=== PATIENT | male | born 1965 | race Two or more races ===

== ENCOUNTER 2017-08-29 07:55 | Outpatient (CLI) | payer OTHER ==
[~2017-08-29 07:55] MED LIST: BACLOFEN10 MG; BACLOFEN20 MG PO; CELEXA40 MG PO; CIPRO750 MG PO; CLONAZEPAM1 MG PO; CYMBALTA20 MG; CYMBALTA60 MG; DEMEROL IM; DOCUSATE SODIU100 MG PO; LEXAPRO5 MG; METHYLPRED4 MG/DOSE- PO; NEURONTIN300 MG; NORFLEX100 MG PO; PERCOCET 5/3251 TAB PO; PREVACID30 MG PO; TOPAMAX25 MG; VISTARIL25 MG PO; [UNRECOGNIZED DRUG - OTHER]
== END 2017-08-29 08:09 | disposition home or self-care (01) ==
LOC: LAB 07:55
DX: N40.0 Benign prostatic hyperplasia without lower urinary tract symptoms (principal); N52.8 Other male erectile dysfunction

== ENCOUNTER → 2017-09-21 | Outpatient (CLI) | payer OTHER | END | disposition home or self-care (01) | LOC: LAB 08:09 | DX: N40.1 Benign prostatic hyperplasia with lower urinary tract symptoms (principal); E11.65 Type 2 diabetes mellitus with hyperglycemia; D64.89 Other specified anemias; E78.2 Mixed hyperlipidemia ==

== ENCOUNTER 2017-09-26 08:57 | Outpatient (CLI) | payer OTHER | END 2017-09-26 09:14 | disposition home or self-care (01) | LOC: LAB 08:57 | DX: N40.1 Benign prostatic hyperplasia with lower urinary tract symptoms (principal); E11.65 Type 2 diabetes mellitus with hyperglycemia; D64.89 Other specified anemias; E78.2 Mixed hyperlipidemia ==

== ENCOUNTER → 2017-12-31 07:59 | Outpatient (CLI) | payer OTHER | END | disposition home or self-care (01) | LOC: LAB 07:59 | DX: N39.0 Urinary tract infection, site not specified (principal); E11.21 Type 2 diabetes mellitus with diabetic nephropathy; D68.8 Other specified coagulation defects; E78.2 Mixed hyperlipidemia; E11.65 Type 2 diabetes mellitus with hyperglycemia ==

== ENCOUNTER → 2018-01-02 10:15 | Outpatient (CLI) | payer OTHER | END | disposition home or self-care (01) | LOC: LAB 10:15 | DX: N39.0 Urinary tract infection, site not specified (principal); E11.21 Type 2 diabetes mellitus with diabetic nephropathy; D68.8 Other specified coagulation defects; E78.2 Mixed hyperlipidemia; E11.65 Type 2 diabetes mellitus with hyperglycemia ==

== ENCOUNTER 2018-04-08 08:46 | Outpatient (CLI) | payer OTHER | END 2018-04-08 09:05 | disposition home or self-care (01) | LOC: LAB 08:46 | DX: N39.0 Urinary tract infection, site not specified (principal); E11.65 Type 2 diabetes mellitus with hyperglycemia; E03.8 Other specified hypothyroidism; E78.2 Mixed hyperlipidemia ==

== ENCOUNTER → 2018-12-16 | Outpatient (CLI) | payer OTHER | END | disposition home or self-care (01) | LOC: NUCLEAR 11-20 09:00 | DX: E21.0 Primary hyperparathyroidism (principal) | CPT/HCPCS: 78070; A9500 ==

== ENCOUNTER 2019-01-10 08:59 | Outpatient (CLI) | payer OTHER | END 2019-01-10 09:15 | disposition home or self-care (01) | LOC: LAB 08:59 | DX: M32.8 Other forms of systemic lupus erythematosus (principal) ==

== ENCOUNTER 2019-02-19 12:37 | Outpatient (CLI) | payer OTHER | END 2019-02-19 13:12 | disposition home or self-care (01) | LOC: RAD 12:37 | DX: M34.81 Systemic sclerosis with lung involvement (principal) ==

== ENCOUNTER 2019-03-04 08:41 | Outpatient (CLI) | payer OTHER | END 2019-03-04 15:00 | disposition home or self-care (01) | LOC: LAB 08:41 | DX: E11.65 Type 2 diabetes mellitus with hyperglycemia (principal); E78.2 Mixed hyperlipidemia; N39.0 Urinary tract infection, site not specified; E03.8 Other specified hypothyroidism; D64.89 Other specified anemias ==

== ENCOUNTER → 2019-09-01 09:39 | Outpatient (CLI) | payer OTHER | END | disposition home or self-care (01) | LOC: LAB 09:39 | PROVIDERS: ATTEND General Practice | DX: J11.1 Influenza due to unidentified influenza virus with other respiratory manifestations (principal); Z20.828 Contact with and (suspected) exposure to other viral communicable diseases; R51 Headache; Z11.59 Encounter for screening for other viral diseases ==

== ENCOUNTER 2019-10-15 12:37 | Emergency (ER) | payer OTHER ==
[~2019-10-15] VITALS: Ht 162.6 cm; Wt 70.3 kg
== END 2019-10-15 17:37 | disposition home or self-care (01) ==
LOC: ER 12:37
DX: B34.9 Viral infection, unspecified (principal); Z20.828 Contact with and (suspected) exposure to other viral communicable diseases

== ENCOUNTER 2019-10-21 14:14 | Outpatient (CLI) | payer OTHER | END 2019-10-21 14:16 | disposition home or self-care (01) | LOC: TOM 14:14 | PROVIDERS: ATTEND Psychiatry & Neurology Clinical Neurophysiology | DX: R51 Headache (principal) ==

== ENCOUNTER 2020-03-31 12:24 | Outpatient (CLI) | payer OTHER | END 2020-03-31 15:39 | disposition home or self-care (01) | LOC: RAD 12:24 | PROVIDERS: ATTEND Psychiatry & Neurology Clinical Neurophysiology | DX: M54.12 Radiculopathy, cervical region (principal) ==

== ENCOUNTER 2020-05-20 13:25 | Outpatient (CLI) | payer OTHER | END 2020-05-20 13:32 | disposition home or self-care (01) | LOC: RAD 13:25 | PROVIDERS: ATTEND Orthopaedic Surgery Orthopaedic Surgery of the Spine | DX: R07.89 Other chest pain (principal) ==

== ENCOUNTER 2020-06-17 10:55 | Outpatient (CLI) | payer OTHER | END 2020-06-17 11:04 | disposition home or self-care (01) | LOC: RAD 10:55 | PROVIDERS: ATTEND Orthopaedic Surgery Orthopaedic Surgery of the Spine | DX: R07.89 Other chest pain (principal) ==

== ENCOUNTER 2020-06-22 12:15 | Inpatient (IN) | payer OTHER ==
[~2020-06-22] VITALS: Ht 162.6 cm; Wt 68.9 kg
[2020-06-22] MEDS ORDERED: LIPITOR40 M1 PO (15:11)
[2020-06-22] MEDS ORDERED: GLIMEPIRIDE1 MG (15:11)
[2020-06-22] MEDS ORDERED: PLAVIX75 MG PO (15:12)
[2020-06-22] MEDS ORDERED: LIPOFEN150 MG PO (15:12)
[2020-06-22] MEDS ORDERED: JANUMET XR 50-1 EACH PO (15:12)
[2020-06-28] MEDS ORDERED: MEDROLPACK PO (07:46)
[2020-06-28] MEDS ORDERED: DIAZEPAM10 MG PO (07:46)
[2020-06-28] MEDS ORDERED: PERCOCET 5-3251 EACH PO (07:46)
[2020-06-28] MEDS ORDERED: COLACE100 MG PO (07:46)
== END 2020-06-29 12:21 | disposition home or self-care (01) | DRG 473 ==
LOC: O/R 06-28 04:54 → SURG 06-28 04:54 → SURH 09-28 12:15
PROVIDERS: ADMIT Orthopaedic Surgery Orthopaedic Surgery of the Spine; ATTEND Orthopaedic Surgery Orthopaedic Surgery of the Spine
PROC: XRG10F3 Fusion of Cervical Vertebral Joint using Radiolucent Porous Interbody Fusion Device, Open Approach, New Technology Group 3 (ICD-10-PCS; 2020-06-28)
PROC: 07DS3ZZ Extraction of Vertebral Bone Marrow, Percutaneous Approach (ICD-10-PCS; 2020-06-28)
PROC: 0RT30ZZ Resection of Cervical Vertebral Disc, Open Approach (ICD-10-PCS; principal; 2020-06-28 07:00)
DX: M50.01 Cervical disc disorder with myelopathy, high cervical region (principal); M48.02 Spinal stenosis, cervical region; I10 Essential (primary) hypertension; E11.9 Type 2 diabetes mellitus without complications

== ENCOUNTER 2020-07-13 13:16 | Outpatient (CLI) | payer OTHER ==
[~2020-07-13 13:16] MED LIST changes: +COLACE100 MG PO; +DIAZEPAM10 MG PO; +GLIMEPIRIDE1 MG; +JANUMET XR 50-1 EACH PO; +LIPITOR40 M1 PO; +LIPOFEN150 MG PO; +MEDROLPACK PO; +PERCOCET 5-3251 EACH PO; +PLAVIX75 MG PO
== END 2020-07-13 13:35 | disposition home or self-care (01) ==
LOC: RAD 13:16
PROVIDERS: ATTEND Orthopaedic Surgery Orthopaedic Surgery of the Spine
DX: Z98.1 Arthrodesis status (principal)

== ENCOUNTER → 2020-08-10 08:05 | Outpatient (CLI) | payer OTHER | END | disposition home or self-care (01) | LOC: LAB 08:05 | PROVIDERS: ATTEND Internal Medicine Hematology & Oncology | DX: D50.8 Other iron deficiency anemias (principal); R79.89 Other specified abnormal findings of blood chemistry; I10 Essential (primary) hypertension; R74.02 Elevation of levels of lactic acid dehydrogenase [LDH]; K76.89 Other specified diseases of liver; D51.1 Vitamin B12 deficiency anemia due to selective vitamin B12 malabsorption with proteinuria; D51.0 Vitamin B12 deficiency anemia due to intrinsic factor deficiency; E03.8 Other specified hypothyroidism; E06.3 Autoimmune thyroiditis; D47.3 Essential (hemorrhagic) thrombocythemia; M50.00 Cervical disc disorder with myelopathy, unspecified cervical region; M51.06 Intervertebral disc disorders with myelopathy, lumbar region; E78.2 Mixed hyperlipidemia; E11.69 Type 2 diabetes mellitus with other specified complication; E11.21 Type 2 diabetes mellitus with diabetic nephropathy ==

== ENCOUNTER 2020-08-10 12:53 | Outpatient (CLI) | payer OTHER | END 2020-08-10 13:02 | disposition home or self-care (01) | LOC: SONOGRAMA 12:53 → MAMO-SONO 13:15 | PROVIDERS: ATTEND Internal Medicine Hematology & Oncology | DX: E04.2 Nontoxic multinodular goiter (principal); R59.0 Localized enlarged lymph nodes; D47.3 Essential (hemorrhagic) thrombocythemia; I10 Essential (primary) hypertension; E11.9 Type 2 diabetes mellitus without complications; M50.00 Cervical disc disorder with myelopathy, unspecified cervical region; M51.06 Intervertebral disc disorders with myelopathy, lumbar region; E78.2 Mixed hyperlipidemia ==

== ENCOUNTER 2020-11-09 14:09 | Outpatient (CLI) | payer OTHER | END 2020-11-09 14:17 | disposition home or self-care (01) | LOC: RAD 14:09 | PROVIDERS: ATTEND Orthopaedic Surgery Orthopaedic Surgery of the Spine | DX: G95.89 Other specified diseases of spinal cord (principal); Z98.1 Arthrodesis status ==

== ENCOUNTER 2021-02-14 14:14 | Outpatient (CLI) | payer OTHER | END 2021-02-14 14:18 | disposition home or self-care (01) | LOC: SONOGRAMA 14:14 | PROVIDERS: ATTEND Internal Medicine Hematology & Oncology | DX: E04.2 Nontoxic multinodular goiter (principal); D47.3 Essential (hemorrhagic) thrombocythemia; I10 Essential (primary) hypertension; E11.9 Type 2 diabetes mellitus without complications; M50.00 Cervical disc disorder with myelopathy, unspecified cervical region; M51.06 Intervertebral disc disorders with myelopathy, lumbar region; E78.2 Mixed hyperlipidemia ==

== ENCOUNTER 2021-05-04 13:20 | Outpatient (CLI) | payer OTHER | END 2021-05-04 13:23 | disposition home or self-care (01) | LOC: NUCLEAR 13:20 | PROVIDERS: ATTEND Psychiatry & Neurology Clinical Neurophysiology | DX: I80.11 Phlebitis and thrombophlebitis of right femoral vein (principal) ==

== ENCOUNTER 2021-06-15 11:41 | Outpatient (CLI) | payer OTHER | END 2021-06-15 11:48 | disposition home or self-care (01) | LOC: TOM 11:41 | PROVIDERS: ATTEND Anesthesiology | DX: M54.50 Low back pain, unspecified (principal) ==

== ENCOUNTER 2021-09-29 07:41 | Outpatient (CLI) | payer OTHER | END 2021-09-29 15:14 | disposition home or self-care (01) | LOC: TOM 07:41 | PROVIDERS: ATTEND Internal Medicine Hematology & Oncology | DX: R97.0 Elevated carcinoembryonic antigen [CEA] (principal); R63.4 Abnormal weight loss; D47.3 Essential (hemorrhagic) thrombocythemia; I10 Essential (primary) hypertension; E11.9 Type 2 diabetes mellitus without complications; E78.2 Mixed hyperlipidemia | CPT/HCPCS: 71260; 74177; Q9965 ==

== ENCOUNTER → 2022-06-26 | Outpatient (CLI) | payer OTHER | END | disposition home or self-care (01) | LOC: TOM 06:58 | DX: K21.9 Gastro-esophageal reflux disease without esophagitis (principal) ==

== ENCOUNTER 2022-07-03 09:27 | Emergency (ER) | payer OTHER ==
[~2022-07-03] VITALS: Ht 162.6 cm; Wt 71.2 kg
[2022-07-03] MEDS ORDERED: CLINDAMYCIN HC300 MG PO (14:28)
== END 2022-07-03 14:45 | disposition home or self-care (01) ==
LOC: ER 09:27
DX: L03.115 Cellulitis of right lower limb (principal); Z88.8 Allergy status to other drugs, medicaments and biological substances

== ENCOUNTER 2022-07-11 14:41 | Inpatient (IN) | payer OTHER ==
[~2022-07-11] VITALS: Ht 162.6 cm; Wt 24.0 kg
[~2022-07-11 14:41] MED LIST changes: +CLINDAMYCIN HC300 MG PO
[2022-07-11] MEDS ORDERED: MIRAPEX0.5 MG PO (15:23)
--- NOTE | 2022-07-11 15:23 | NUR ---
SE RECIBE PTE MASCULINO ALERTA Y ORIENTADO EN [place] ESFERAS REFIERE CELULLITIS EN PIERNA R+, SE OBSERVA AREA CON EDEMA, ERITEMA Y EXUDADO DESDE HACE VARIOS HAND. PTE REFERIDO POR .
--- NOTE | 2022-07-11 16:18 | NUR ---
SE EDUCA A PTE SOBRE TX MEDICO T[place] REFIERE ENTENDER, SE ZIA MUESTRAS DE LABORATORIO UTILIZANDO MEDIDAS ASEPTICAS. SE COLOCA H/L A PTE Y SE ADMINISTRAN MEDICAMENTOS LOS CUALES TOLERA. SE NOTIFICAN RX Y DOPPLER PENDIENTE. SE NOTIFICA CONSULTA CON MEDICINA INTERNA.
== END 2022-07-14 14:32 | disposition home or self-care (01) | DRG 580 ==
LOC: ER 14:41 → MEDJ 17:23 → MEDI 17:23
PROVIDERS: ADMIT Specialist; ATTEND Specialist
PROC: B44FZZZ Ultrasonography of Right Lower Extremity Arteries (ICD-10-PCS; 2022-07-11)
PROC: B54BZZZ Ultrasonography of Right Lower Extremity Veins (ICD-10-PCS; 2022-07-11)
PROC: 0JDN0ZZ Extraction of Right Lower Leg Subcutaneous Tissue and Fascia, Open Approach (ICD-10-PCS; principal; 2022-07-12)
DX: L97.219 Non-pressure chronic ulcer of right calf with unspecified severity (principal); L03.115 Cellulitis of right lower limb; E11.42 Type 2 diabetes mellitus with diabetic polyneuropathy; R60.0 Localized edema; Z79.84 Long term (current) use of oral hypoglycemic drugs

== ENCOUNTER → 2023-10-26 | Outpatient (CLI) | payer OTHER ==
[~2023-10-26] MED LIST changes: +MIRAPEX0.5 MG PO
== END | disposition home or self-care (01) ==
LOC: SONOGRAMA 10:58
PROVIDERS: ATTEND Internal Medicine Hematology & Oncology
DX: D50.8 Other iron deficiency anemias (principal); D47.3 Essential (hemorrhagic) thrombocythemia; R97.0 Elevated carcinoembryonic antigen [CEA]; I10 Essential (primary) hypertension; E11.9 Type 2 diabetes mellitus without complications; M50.00 Cervical disc disorder with myelopathy, unspecified cervical region; M51.06 Intervertebral disc disorders with myelopathy, lumbar region; E78.2 Mixed hyperlipidemia; R97.20 Elevated prostate specific antigen [PSA]

== ENCOUNTER 2024-06-02 13:27 | Outpatient (CLI) | payer OTHER ==
[2024-06-02 14:33] LABS: COVID-19 AG NEGATIVE (NEGATIVE)
== END 2024-06-02 13:28 | disposition home or self-care (01) ==
LOC: LAB 13:27
PROVIDERS: ATTEND Psychiatry & Neurology Clinical Neurophysiology
DX: U07.1 COVID-19 (principal)